=== PATIENT | male | born 1955 | race Caucasian/White ===

== ENCOUNTER 2017-03-20 13:16 | Emergency (ER) | payer BC, OTHER ==
[~2017-03-20] VITALS: Ht 162.6 cm; Wt 87.6 kg
[2017-03-20 13:23] VITALS: BP 155/83
== END 2017-03-20 14:12 | disposition home or self-care (01) ==
LOC: ED 14:00
DX: M77.9 Enthesopathy, unspecified (principal)
CPT/HCPCS: 29125; 99283